=== PATIENT | female | born 1990 | race African-American/Black ===

== ENCOUNTER 2021-08-06 01:16 | Emergency (ER) | payer OTHER ==
[~2021-08-06] VITALS: Ht 172.7 cm; Wt 61.7 kg
--- NOTE | 2021-08-06 01:27 | NUR ---
TO ER BED 10. BIBBOYFRIEND C/O INGESTING "AGAPITO" AND ETOH. PT IS AGITATED BUT DENIES ANY CHEST PAIN. CONNECTED TO MONITOR. ELEVATED HR NOTED. MADE AWARE. WILL CONTINUE TO MONITOR.
[2021-08-06] MEDS ORDERED: LORAZEPAM INJ 2 MG/ML VIAL ONE (01:40)
[2021-08-06] MEDS ORDERED: LORAZEPAM INJ 2 MG/ML VIAL IM ONE (02:00)
--- NOTE | 2021-08-06 02:40 | NUR ---
PT IS AGITATED. PROVIDED HER WITH WARM BLANKETS. WILL CONTINUE TO MONITOR.
--- NOTE | 2021-08-06 03:23 | NUR ---
PT AMBULATED TO BATHROOM WITH ASSISTANCE, STEADY GAIT NOTED.
--- NOTE | 2021-08-06 04:24 | NUR ---
PROVIDED PT WITH CRAKERS AND WATER.
--- NOTE | 2021-08-06 05:13 | NUR ---
Patient discharged to home in stable condition. Written and verbal after care instructions given. Patient verbalizes understanding of instruction.
[2021-08-06 05:14] VITALS: BP 129/91
== END 2021-08-06 05:14 | disposition home or self-care (01) ==
LOC: ER 01:18
DX: F19.129 Other psychoactive substance abuse with intoxication, unspecified (principal); R45.1 Restlessness and agitation
CPT/HCPCS: 82962; 96372; 99283; J2060